=== PATIENT | female | born 1945 | race Hispanic/Latino ===

== ENCOUNTER 2017-10-13 19:53 | Emergency (ER) | payer MEDICARE, MEDICAID ==
[~2017-10-13] VITALS: Ht 157.5 cm; Wt 79.8 kg
[2017-10-13] MEDS ORDERED: AMLODIPINE BESY10 MG ORAL (19:59)
[2017-10-13] MEDS ORDERED: NEXIUM40 MG ORAL (19:59)
[2017-10-13] MEDS ORDERED: TRAMADOL HCL50 MG ORAL (19:59)
[2017-10-13] MEDS ORDERED: Tylenol #3 tab (300mg/30mg) PO ONE (20:15)
[2017-10-13] MEDS ORDERED: ACETAMINOPHEN-1 EAC1 ORAL (20:51)
[2017-10-13 21:16] VITALS: BP 145/85
--- NOTE | 2017-10-13 21:40 | Emergency Room Report ---
History of Present Illness General Chief Complaint: Lower Extremity Injury Source: Patient Present Illness HPI 72-year-old female presents ED complaining of left knee pain. States that the door hit her left knee tonight. Brought in by EMS. Patient states pain is throbbing, 8/10, nonradiating. States she is unable to bear weight. Denies any other injuries. No other aggravating relieving factors. Denies any other associated symptoms Allergies: Coded Allergies: PENICILLINS (Verified Allergy, Unknown, 10/13/17) Patient History Past Medical History: HTN Past Surgical History: none Pertinent Family History: none Social History: Denies: smoking, alcohol use, drug use Now: No Immunizations: UTD Reviewed Nursing Documentation: PMH: Agreed, PSxH: Agreed Nursing Documentation-PMH Past Medical History: No History, Except For Hx Hypertension: Yes Review of Systems All Other Systems: negative except mentioned in HPI Physical Exam Vital Signs Date Time Temp Pulse Resp B/P (MAP) Pulse Ox O2 Delivery O2 Flow Rate FiO2 10/13/17 19:50 102 16 176/122 96 Room Air Sp02 EP Interpretation: reviewed, normal General Appearance: no apparent distress, alert, GCS 15, non-toxic Head: normocephalic Eyes: bilateral eye normal inspection, bilateral eye PERRL ENT: normal ENT inspection Neck: normal inspection Respiratory: normal inspection Cardiovascular #1: normal inspection Gastrointestinal: normal inspection Rectal: deferred Genitourinary: no CVA tenderness Musculoskeletal: back normal, gait/station normal, normal range of motion, tender - L knee Neurologic: alert, oriented x3, responsive, motor strength/tone normal, sensory intact, speech normal Psychiatric: normal inspection Skin: normal inspection Lymphatic: normal inspection Procedures Splinting Splinting : Consent: Verbal Pre-Made Type: knee immobilizer Pre-Proc Neuro Vasc Exam: normal Post-Proc Neuro Vasc Exam: normal Patient Tolerated: Well Complications: None Medical Decision Making Diagnostic Impression: Primary Impression: Patella fracture Qualified Codes: S82.002A - Unspecified fracture of left patella, initial encounter for closed fracture ER Course Hospital Course 72-year-old female presents ED any left knee pain status post hit by door Differential diagnoses include: Fracture, dislocation, sprain, contusion Clinical course Patient placed on stretcher. After initial history and physical, I ordered pain medications and Xrays of L knee Xrays prelim read shows ? patella fx nondisplaced Diagnosis - patella fx Stable and discharged to home with prescription for Tylenol #3. apply ice, keep elevated. weight bear as tolerated. Followup with PMD. Return to ED if symptoms recur or worsen Other X-Ray Diagnostic Results Other X-Ray Diagnostic Results : X-Ray ordered: L knee # of Views/Limited Vs Complete: 3 View Indication: Pain EP Interpretation: Yes Interpretation: no dislocation, no soft tissue swelling, other - patella fx Impression: Other - ? patella fx Electronically Signed by: Electronically signed by [place] MD Last Vital Signs Date Time Temp Pulse Resp B/P (MAP) Pulse Ox O2 Delivery O2 Flow Rate FiO2 10/13/17 19:50 102 16 176/122 96 Room Air Status: improved Disposition: HOME, SELF-CARE Condition: Stable Scripts Acetaminophen With Codeine (T#3) (TYLENOL #3 TAB*) Y Tab 1 TAB ORAL Q8H Y for For Pain, #20 TAB Prov: LOS HEATH M.D. 10/13/17 Patient Instructions: Patellar Fracture, Adult LOS HEATH M.D. Oct 13, 2017 21:40
--- NOTE | 2017-10-14 11:01 | Diagnostic Imaging Report ---
Indication: PAIN Technique: 3 views of the left knee Comparison: None Findings:No suprapatellar effusion. No acute fractures. No dislocations. Joint spaces are preserved. There are small patellar osteophytes Impression:Minimal degenerative changes. No acute bony trauma
== END 2017-10-13 21:16 | disposition home or self-care (01) ==
LOC: EDBD 19:53 → MERGE 20:06 → EMR 20:06
DX: S82.002A Unspecified fracture of left patella, initial encounter for closed fracture (principal); W22.8XXA Striking against or struck by other objects, initial encounter; Y92.9 Unspecified place or not applicable; I10 Essential (primary) hypertension; Z88.0 Allergy status to penicillin
CPT/HCPCS: 99283